=== PATIENT | male | born 1990 | race Caucasian/White ===

== ENCOUNTER 2019-05-17 12:43 | Emergency (ER) | payer SELFPAY ==
[2019-05-17] MEDS: DEXAMETHASONE 10 MG/ML 1 ML INJ IM (14:30)
[2019-05-17] MEDS: DIAZEPAM 5 MG TAB PO (14:30)
[2019-05-17] MEDS: KETOROLAC 60 MG INJ IM (14:30)
== END 2019-05-17 15:51 | disposition home or self-care (01) ==
LOC: FTE 12:43
DX: M54.2 Cervicalgia (principal); M54.5 Low back pain; M25.512 Pain in left shoulder; M25.511 Pain in right shoulder
CPT/HCPCS: 72125; 72131; 96372; 99285-25